=== PATIENT | female | born 1995 | race Caucasian/White ===

== ENCOUNTER 2018-07-11 08:22 | Inpatient (IN) ==
[2018-07-11] MEDS ORDERED: LACTATED RINGERS 1,000 ML IV ONE (12:46)
[2018-07-11] MEDS: BUTORPHANOL 2 MG/ML VIAL IV PRN ×2 (13:07→23:29)
[2018-07-11] MEDS: ONDANSETRON 4 MG/2 ML VIAL IV PRN ×2 (13:07→23:34)
[2018-07-12] MEDS ORDERED: OXYTOCIN/LR 20 UNIT/1,000 ML BAG IV SCH (02:30)
[2018-07-12] MEDS: LACTATED RINGERS 1,000 ML IV SCH ×2 (02:51→12:21)
[2018-07-12] MEDS: BUTORPHANOL 2 MG/ML VIAL IV PRN (04:05)
[2018-07-12] MEDS ORDERED: diphenhydrAMINE 50 MG/1 ML VIAL IV PRN (04:22)
[2018-07-12] MEDS ORDERED: NALOXONE 0.4 MG/ML VIAL IV PRN (04:22)
[2018-07-12] MEDS ORDERED: ePHEDrine 50 MG/ML AMP IV PRN (04:22)
[2018-07-12] MEDS ORDERED: FAMOTIDINE 20 MG/2 ML VIAL IV ONE (04:23)
[2018-07-12] MEDS ORDERED: CITRIC ACID/SODIUM CITRATE 30 ML UDCUP PO ONE (04:23)
[2018-07-12 04:30] LABS: Basophils % 0.2 % (0.0-0.8); Eosinophils % 0.1 % (0.00-10.9); Hematocrit 25.6 VOL% (35.7-47.0); Hemoglobin 7.7 GM/DL (12.0-16.0); Immature Granulocytes Absolute 0.09 #; Lymphocytes # 1.2 10*3/uL (1.4-4.0); Lymphocytes % 12.8 % (21.3-54.2); Mean Corpuscular HGB Conc 30.1 GM/DL (32-36); Mean Corpuscular Hemoglobin 21 PG (27-34); Mean Corpuscular Volume 69.2 FL (87-102); Mean Platelet Volume 11.7 FL (9.6-12.0); Monocytes # 0.7 10*3/uL (0.11-0.8); Monocytes % 8.2 % (1.7-12.7); NRBC # 0.02 10*3/uL; Neutrophils % 77.7 % (38.7-73.9); Platelet Count 195 T/CUMM (130-400); Red Cell Distribution Width 15.9 % (9.3-17.3)
[2018-07-12] MEDS ORDERED: fentaNYL 2 MCG/ROPIV 0.2% EPID 100 ML EPIDURAL SCH (04:30)
[2018-07-12 04:34] LABS: Anisocytosis 1+; Microcytosis 2+; Ovalocytes Few; Platelet Estimate Normal; Poikilocytosis Few; Tear Drop Cells Slight
[2018-07-12 08:32] LABS: Apearance,Urine Slightly Hazy (Clear); Bilirubin,Urine Negative (Negative); Blood, Urine Negative (Negative); Glucose,Urine (UA) Negative (Negative); Ketones,Urine 80 mg/dL (Negative); Mucus,Urine Many /LPF (Occasional); Nitrite,Urine Negative (Negative); Protein,Urine 30 MG/DL; RBC,Urine <1 /HPF (0-4); Squamous Epithelial Cell,Urine Occasional /HPF (0-10); Urine Color Yellow (Yellow); Urine Specific Gravity 1.024 (1.001-1.035); Urine Urobilinogen < 2.0 EU/DL (0.2-1.0); WBC,Urine <1 /HPF (0-6)
[2018-07-12] MEDS ORDERED: LIDOCAINE 1% 50 ML VIAL ONE (09:34)
[2018-07-12] MEDS ORDERED: CARBOPROST TROMETHAMINE 250 MCG/ML AMP IM ONE (09:35)
[2018-07-12] MEDS ORDERED: miSOPROStol 200 MCG TABLET ONE (09:35)
[2018-07-12] MEDS ORDERED: METHYLERGONOVINE 0.2 MG/1 ML AMP ONE (09:35)
[2018-07-12] MEDS: ONDANSETRON 4 MG/2 ML VIAL IV PRN (12:12)
[2018-07-12] MEDS ORDERED: IBUPROFEN 800 MG TABLET PO PRN (12:59)
[2018-07-12] MEDS ORDERED: oxyCODONE/ACETAMINOPHEN 5-325 MG TABLET PO PRN (12:59)
[2018-07-12] MEDS ORDERED: MEASLES/MUMPS/RUBELLA VACCINE 0.5 ML VIAL SUBCUT ONE (14:01)
[2018-07-12] MEDS ORDERED: LANOLIN 50% CREAM 0.3 OZ TUBE TOP PRN (14:01)
[2018-07-12] MEDS ORDERED: RHO(D) IMMUNE GLOBULIN 300 MCG SYRINGE IM ONE (14:01)
[2018-07-12] MEDS ORDERED: DIPH/TET/ACEL PERT BOOSTER VACCINE 0.5 ML VIAL IM ONE (14:01)
[2018-07-12] MEDS ORDERED: BISACODYL 10 MG SUPP RECTAL PRN (14:01)
[2018-07-12] MEDS ORDERED: ACETAMINOPHEN/CODEINE 300-30 MG TABLET PO PRN (14:01)
[2018-07-12] MEDS ORDERED: HYDROCORTISONE 2.5% RECTAL CREAM 30 GM TUBE TOP PRN (14:01)
[2018-07-12] MEDS ORDERED: BENZOCAINE 20%/MENTHOL 0.5% SPRAY 56 GM CAN TOP PRN (14:01)
[2018-07-12] MEDS ORDERED: ACETAMINOPHEN 325 MG TABLET PO PRN (14:01)
[2018-07-12] MEDS ORDERED: WITCH HAZEL PADS 100/JAR TOP PRN (14:01)
[2018-07-12] MEDS ORDERED: IBUPROFEN 800 MG TABLET ONE (17:28)
[2018-07-12] MEDS: oxyCODONE/ACETAMINOPHEN 5-325 MG TABLET PO PRN (17:29)
[2018-07-12] MEDS: IBUPROFEN 800 MG TABLET PO PRN (17:29)
[2018-07-12] MEDS ORDERED: DOCUSATE SODIUM 100 MG CAPSULE PO SCH (21:00)
[2018-07-12] MEDS: DOCUSATE SODIUM 100 MG CAPSULE PO SCH (21:03)
[2018-07-12] MEDS: FERROUS SULFATE 325 MG TABLET PO SCH (21:03)
[2018-07-13] MEDS: oxyCODONE/ACETAMINOPHEN 5-325 MG TABLET PO PRN ×2 (00:20→20:28)
[2018-07-13] MEDS: IBUPROFEN 800 MG TABLET PO PRN ×2 (00:20→20:29)
[2018-07-13 04:37] LABS: Basophils % 0.3 % (0.0-0.8); Eosinophils % 0.4 % (0.00-10.9); Hematocrit 25.3 VOL% (35.7-47.0); Hemoglobin 7.4 GM/DL (12.0-16.0); Immature Granulocytes % 1.3 %; Lymphocytes # 2.1 10*3/uL (1.4-4.0); Lymphocytes % 27.4 % (21.3-54.2); Mean Corpuscular HGB Conc 29.2 GM/DL (32-36); Mean Corpuscular Hemoglobin 21 PG (27-34); Mean Corpuscular Volume 70.5 FL (87-102); Mean Platelet Volume 12.5 FL (9.6-12.0); Monocytes # 0.7 10*3/uL (0.11-0.8); Monocytes % 9.3 % (1.7-12.7); NRBC # 0.02 10*3/uL; Neutrophils # 4.6 10*3/uL (1.4-7.4); Neutrophils % 61.3 % (38.7-73.9); Platelet Count 222 T/CUMM (130-400); Red Blood Count 3.59 MC/CUMM (3.8-5.5); Red Cell Distribution Width 15.9 % (9.3-17.3); White Blood Count 7.5 T/CUMM (4-12)
[2018-07-13] MEDS: FERROUS SULFATE 325 MG TABLET PO SCH ×3 (10:24→20:27)
[2018-07-13] MEDS: DOCUSATE SODIUM 100 MG CAPSULE PO SCH ×2 (10:24→20:27)
[2018-07-14 08:14] VITALS: BP 119/72
[2018-07-14] MEDS: DOCUSATE SODIUM 100 MG CAPSULE PO SCH ×2 (09:11→09:15)
[2018-07-14] MEDS: FERROUS SULFATE 325 MG TABLET PO SCH ×2 (09:11→09:15)
== END 2018-07-14 12:15 | disposition home or self-care (01) | DRG 775 ==
LOC: N.LDOUT 08:22 → N.LD 08:46 → N.OB 07-12 13:10
PROVIDERS: ADMIT Obstetrics & Gynecology; ATTEND Obstetrics & Gynecology